=== PATIENT | male | born 1980 | race Caucasian/White ===

== ENCOUNTER 2022-04-22 11:10 | Inpatient (IN) | payer OTHER ==
[~2022-04-22] VITALS: Ht 175.3 cm; Wt 79.4 kg
--- NOTE | 2022-04-22 11:29 | NUR ---
PTE REFIERE QUE TIENE DOLOR ABDOMINAL DESDE PHAN POR LA NOCHE
--- NOTE | 2022-04-22 13:30 | NUR ---
SE REALIZA RONALD MUESTRAS JACQUELYN ORDEN MEDICA Y BAJO MEDIDAS ASEPTICAS. SE ADMINITRA MEDS JACQUELYN ORDEN Y SE ORIENTA SOBRE TX ORDENADO. PTE PENDIENTE A ESTUDIO.
== END 2022-04-23 14:01 | disposition home or self-care (01) | DRG 343 ==
LOC: ER 11:10 → SURH 16:45
PROVIDERS: Surgery; ADMIT Internal Medicine; ATTEND Internal Medicine
PROC: BW21ZZZ Computerized Tomography (CT Scan) of Abdomen and Pelvis (ICD-10-PCS; 2022-04-22)
PROC: 0DTJ4ZZ Resection of Appendix, Percutaneous Endoscopic Approach (ICD-10-PCS; principal; 2022-04-22 16:00)
DX: K35.890 Other acute appendicitis without perforation or gangrene (principal); Z20.822 Contact with and (suspected) exposure to COVID-19

== ENCOUNTER → 2022-11-23 | Emergency (ER) | payer OTHER | END | disposition left against medical advice (07) | LOC: ER 09:10 | DX: Z53.21 Procedure and treatment not carried out due to patient leaving prior to being seen by health care provider (principal) ==